=== PATIENT | male | born 1980 | race Caucasian/White ===

== ENCOUNTER 2023-04-05 15:36 | Emergency (ER) | payer OTHER, SELFPAY ==
[2023-04-05] VITALS (8 sets, daily range): BP systolic 122–178; BP diastolic 78–130; PULSE 69–79; RESP 18–20; TEMP 35.9; O2SAT 98; BMI 36.3
--- NOTE | 2023-04-05 16:02 | CRLHL7_ITS ---
For Patients: As a result of the Century Cures Act, medical imaging exams and procedure reports are released immediately into your electronic medical record. You may view this report before your referring provider. If you have questions, please contact your health care provider. INDICATION: Headache TECHNIQUE: Non-contrast CT of the head is submitted. No comparisons. FINDINGS: The ventricles, sulci and gyri are of normal size, shape and contour. Midline structures are centrally located. No convincing evidence of intra- or extra-axial fluid collections. IMPRESSION: 1. No radiographic evidence of acute intracranial abnormalities. Please note that all CT scans at this facility use dose modulation, iterative reconstruction, and/or weight-based dosing when appropriate to reduce radiation dose to as low as reasonably achievable. Dictated by Alex Blair MD @ 04/05/2023 4:49:12 PM (Electronically Signed)
--- NOTE | 2023-04-05 16:04 | ED.GENADULT ---
HPI - General Adult General Time Seen by Provider: 16:04 Date Seen: 04/05/23 Chief complaint: Headache/Migraine Stated complaint: Headache lasted 60 sec then disappeared Time Seen by Provider: 04/05/23 15:55 Source: patient Mode of arrival: ambulatory Limitations: no limitations History of Present Illness HPI narrative: Patient is a 42-year-old white male who is largely healthy but does report borderline blood pressure, reports a prep 62nd episode of severe headache in the shower which was around his parietal area and top of his head bilaterally. He does report that with humidity in other changes he has had migraine headaches in the past, but reports this was worse and more sudden. He simply got up today and was taking a shower and had this occur. There was no focal neurologic deficit, there is no facial asymmetry, no word-finding inability, no weakness in his arms or legs. He called triage and they told him to come to the emergency department. The patient describes a mild by temporal headache of 1/10 at this time reports immediately after minute was down to 3 in the now 1. He denies any neck stiffness nuchal rigidity. No chest pain no breathing problem no recent illness. No bleeding or clotting problems. Related Data Home Medications Medication Instructions Recorded Confirmed No Known Home Medications 04/05/23 04/05/23 Allergies Allergy/AdvReac Type Severity Reaction Status Date / Time No Known Drug Allergies Allergy Verified 04/05/23 15:53 Review of Systems Status of ROS: Reports: 6 or more systems reviewed and unremarkable except as noted in History and below [facility] Medical History (Updated 04/05/23 @ 16:13 by Stephanie Solis RN) Migraine ?G43.909 - Migraine, unspecified, not intractable, without status migrainosus (ICD-10) Social History Smoking Status: Never smoker Do you use any of these nicotine containing products: None Second hand tobacco smoke exposure: No How often do you have a drink containing alcohol: never How often do you have six or more drinks on one occasion: Never AUDIT-C Alcohol total score: 0 Non-prescribed substance use: denies use service: No Exam Narrative: Exam Narrative: Objective: Patient's blood pressure is elevated 178/130 this will be repeated, he is afebrile He is alert orient x3 does not appear in any distress No facial asymmetry, pupils equal react to light extraocular moves intact, mouth is clear neck is supple full range of motion Neurologic upper lower extremities nonfocal he has got good strength sensation, he can be ambulatory without difficulty. Also of note is he had no word slurring, no difficulty speaking, no focal neurologic complaints Const: Vital Signs, click to edit/add: Vital Signs - 24 hr 04/05/23 16:51 04/05/23 17:03 04/05/23 17:12 Blood Pressure 126/80 122/90 H 126/87 04/05/23 17:22 Blood Pressure 131/84 Course Course Hospital Course: Patient was signed out to me by Dr. Naylor to follow-up on CT and labs. These are all normal. CT scan is done within 6 hours of symptom onset and is negative for subarachnoid hemorrhage or other acute findings. Labs including CBC, metabolic panel, CRP are all normal. Etiology of his head ache is unclear although it is currently essentially resolved. Discussed with him that if this is a recurrent phenomenon I would recommend primary care follow-up for further evaluation and consideration of other imaging, neurology follow-up etcetera. For today, I think it is reasonable to let him go home per Dr. Naylor's plan. He is comfortable with that as well. Return to the ER at any time for recurrent severe headache, new symptoms such as vomiting, fever, or other changes. Vital Signs Vital signs: Initial Vital Signs Temperature 96.7 F L 04/05/23 15:50 Temperature Source Temporal Artery Scan 04/05/23 15:50 Pulse Rate 69 04/05/23 15:50 Pulse Rhythm Regular 04/05/23 15:50 Respiratory Rate 04/05/23 15:50 Blood Pressure 178/130 H 04/05/23 15:50 Blood Pressure Mean 146 H 04/05/23 15:50 Blood Pressure Position Sitting 04/05/23 15:50 Pulse Oximetry 98 04/05/23 15:50 Oxygen Delivery Method Room Air 04/05/23 15:50 Vital Signs Temperature 96.7 F L 04/05/23 15:50 Pulse Rate 69 04/05/23 15:50 Respiratory Rate 20 04/05/23 15:50 Blood Pressure 178/130 H 04/05/23 15:50 Pulse Oximetry 98 04/05/23 15:50 Oxygen Delivery Method Room Air 04/05/23 15:50 Temperature 96.7 F L 04/05/23 15:50 Pulse Rate 79 04/05/23 16:31 Respiratory Rate 18 04/05/23 16:31 Blood Pressure 131/84 04/05/23 17:22 Pulse Oximetry 98 04/05/23 16:31 Oxygen Delivery Method Room Air 04/05/23 16:31 Medical Decision Making MDM Narrative Medical decision making narrative: Patient is a 42 year white male who is largely healthy but does have history of borderline hypertension, does have history of migraines, has a short-lived severe headache. I think a CT scan at this point because of this would be appropriate, would give some IV fluid as well as check his laboratory studies. Disposition pending his CT scan. And his clinical situation. May need further assessment based on his response and CT findings. Dr. Prather will be here to her change of shift and will assume care at this point. Lab Data Labs: Lab Results 04/05/23 Range/Units 16:10 WBC 7.27 (4.50-11.00) K/uL RBC 5.16 (4.30-5.90) m/uL Hgb 14.5 (13.5-17.5) gm/dL Hct 43.4 (37.0-53.0) % MCV 84 (80-100) fL MCH 28 (26-34) pg MCHC 33 (32-36) gm/dL RDW Coeff of Jerel 12.9 (11.5-15.5) % Plt Count 253 (140-440) K/uL Neut % (Auto) 63.5 (42.0-72.0) % Lymph % (Auto) 27.6 (20-44) % Bleckley % (Auto) 7.0 (0.0-11.0) % Eos % (Auto) 1.4 (0.0-7.0) % Baso % (Auto) 0.4 (0.0-3.0) % Neut # (Auto) 4.61 (1.7-7.0) K/uL Lymph # (Auto) 2.01 (0.90-2.90) K/uL Bleckley # (Auto) 0.50 (0.00-0.90) K/UL Eos # (Auto) 0.10 (0.00-0.50) K/uL Baso # (Auto) 0.03 (0.00-0.30) K/uL Abs Immat Gran (auto) 0.01 (0.00-0.30) K/uL Imm/Tot Granulo (auto) 0.1 % Sodium 137 (135-149) mmol/L Potassium 3.8 (3.6-5.1) mmol/L Chloride 102 (96-114) mmol/L Carbon Dioxide 26 (20-32) mmol/L BUN 16 (5-24) mg/dL Creatinine 0.9 (0.5-1.5) mg/dL Estimated Creat Clear 115.04 Estimated GFR 110 ml/min Glucose 94 (60-115) mg/dL Calcium 9.3 (8.4-10.6) mg/dL C-Reactive Protein 0.7 (0.5-1.0) mg/dL Discharge Plan Discharge Clinical Impression: Elevated blood pressure reading, Headache Patient Disposition: Home, Self-Care Condition: Stable Instructions: Acute Headache (DC) Additional Instructions: Your head CT today does not show any findings such as bleeding or other acute problems. Cause of your headache at this point is unknown. You can certainly use Excedrin or other [id number] medicines as needed. If you have recurrent severe pain or develops new symptoms such as vomiting, fever, etcetera, return to the emergency department at any time. Otherwise, would recommend primary care follow-up for ongoing symptoms. Prescriptions: No Action No Known Home Medications Stand Alone Forms: [employer] Info Instructions
[2023-04-05] MEDS: 0.9 % SODIUM CHLORIDE 1000 ml 1,000 ML 6000 ML IV (16:12)
[2023-04-05 16:30] LABS: Basophils Absolute Auto 0.03 K/uL (0.00-0.30); Basophils Percent Auto 0.4 % (0.0-3.0); Eosinophils Percent Auto 1.4 % (0.0-7.0); Hematocrit 43.4 % (37.0-53.0); Hemoglobin* 14.5 gm/dL (13.5-17.5); Immature Granulocytes Abs Auto 0.01 K/uL (0.00-0.30); Immature Granulocytes Pct Auto 0.1 %; Lymphocytes Absolute Auto 2.01 K/uL (0.90-2.90); Lymphocytes Percent Auto 27.6 % (20-44); Mean Corpuscular HGB Conc 33 gm/dL (32-36); Mean Corpuscular Hemoglobin 28 pg (26-34); Mean Corpuscular Volume 84 fL (80-100); Neutrophils Absolute Auto 4.61 K/uL (1.7-7.0); Neutrophils Percent Auto 63.5 % (42.0-72.0); Platelet Count* 253 K/uL (140-440); RDW Coefficient of Variation % 12.9 % (11.5-15.5); Red Blood Count 5.16 m/uL (4.30-5.90); White Blood Count* 7.27 K/uL (4.50-11.00)
[2023-04-05 16:33] LABS: Slide Review Reflex No
[2023-04-05 16:37] LABS: Chloride* 102 mmol/L (96-114); Sodium* 137 mmol/L (135-149)
[2023-04-05 16:38] LABS: Potassium* 3.8 mmol/L (3.6-5.1)
[2023-04-05 16:40] LABS: Creatinine* 0.9 mg/dL (0.5-1.5); Est. Creatinine Clearance* 115.04; Estimated Glomerular Filt Rate 110 ml/min
[2023-04-05 16:41] LABS: Blood Urea Nitrogen* 16 mg/dL (5-24); Carbon Dioxide* 26 mmol/L (20-32)
[2023-04-05 16:42] LABS: Calcium* 9.3 mg/dL (8.4-10.6); Glucose* 94 mg/dL (60-115)
[2023-04-05 16:44] LABS: C Reactive Protein* 0.7 mg/dL (0.5-1.0)
== END 2023-04-05 17:30 | disposition home or self-care (01) ==
PROVIDERS: Family Medicine; Emergency Provider Emergency Medicine
DX: R51.9 Headache, unspecified (principal); R03.0 Elevated blood-pressure reading, without diagnosis of hypertension
CPT/HCPCS: 36415; 70450; 80048; 85025; 86140; 99284; 99285; J7030